=== PATIENT | female | born 1950 | race Caucasian/White ===

== ENCOUNTER 2023-11-24 10:14 | Emergency (ER) | payer OTHER, MEDICARE ==
[~2023-11-24] VITALS: Ht 165.1 cm; Wt 64.2 kg
[2023-11-24 12:44] VITALS: BP 125/72
[2023-11-24] MEDS ORDERED: ACETAMINOPHEN 500 MG TAB PO ONE (12:45)
== END 2023-11-24 12:47 | disposition home or self-care (01) ==
LOC: ED 10:14
DX: S00.03XA Contusion of scalp, initial encounter (principal); W17.89XA Other fall from one level to another, initial encounter
CPT/HCPCS: 70450; 72125; 99284-25; A9270